=== PATIENT | female | born 1945 | race Caucasian/White ===

== ENCOUNTER 2019-09-07 16:24 | Inpatient (IN) | payer MEDICARE, OTHER ==
[2019-09-07 16:45] LABS: BASOPHILS 0.6 % (0-2); EOSINOPHILS 5.5 % (0-7); HEMATOCRIT 40.9 % (36.0-48.0); HEMOGLOBIN 13.5 g/dL (12-16); IMMATURE GRANULOCYTES 0.2 % (0-5); LYMPHOCYTES 23.6 % (15-50); MCH 30.5 pg (26.0-34.0); MCV 92.3 fL (80.0-100.0); MEAN PLATELET VOLUME 9.9 fL (7.4-10.4); MONOCYTES 8.8 % (2-11); NEUTROPHILS 61.3 % (40-80); PLATELET COUNT 207 10x3/uL (130-400); RBC 4.43 10x6/uL (4.00-5.40); WBC 5.1 10x3/uL (4.8-10.8)
[2019-09-07 16:56] LABS: ANION GAP 12.3 mmol/L (8-16); CALCIUM 8.8 mg/dL (8.5-10.1); CARBON DIOXIDE 25.8 mmol/L (21.0-32.0); CREATININE - SERUM 1.1 mg/dL (0.6-1.3); POTASSIUM - SERUM 4.1 mmol/L (3.5-5.1)
[2019-09-07 16:57] LABS: BILIRUBIN NEGATIVE (NEGATIVE); GLUCOSE NEGATIVE (NEGATIVE); KETONE NEGATIVE (NEGATIVE); NITRITE NEGATIVE (NEGATIVE); UROBILINOGEN NORMAL (NORMAL)
[2019-09-07 17:00] LABS: UDS - AMPHET NEGATIVE QUAL (NEGATIVE); UDS - BARB NEGATIVE QUAL (NEGATIVE); UDS - BENZO NEGATIVE QUAL (NEGATIVE); UDS - COCAINE NEGATIVE QUAL (NEGATIVE); UDS - OPIATE NEGATIVE QUAL (NEGATIVE); UDS - PCP NEGATIVE QUAL (NEGATIVE); UDS - THC NEGATIVE QUAL (NEGATIVE)
[2019-09-07 17:01] LABS: ALBUMIN 3.9 g/dL (3.4-5.0); BILIRUBIN - TOTAL 0.59 mg/dL (0.2-1.3); PROTEIN - SERUM 6.6 g/dL (6.4-8.2)
--- NOTE | 2019-09-07 17:22 | NUR ---
TALKED TO YOJANA IN [facility], STATES THE DAUGHTER HAD ALREADY CALLED ABOUT THE PT. DERRICK ROWLAND IN ROOM TALKING TO PTS AT THIS TIME.
--- NOTE | 2019-09-07 18:10 | NUR ---
PT EATING DINNER , AT BEDSIDE.
--- NOTE | 2019-09-07 19:32 | NUR ---
The patient is admitted from the emergency department. She does not want to be here and her stated "Well, this is not what I thought it was going to be." Explained to him that "If he would rather not admit her it is ok." He said ok, and she said ok. The patient told her spouse she wanted to leave. Escorted the spouse out and asked him "What his goals are and does he want to place her in an assisted living facility." He said "Well, I'd like to get a real psychiatrist Dr. Melgar to adjust her medications and have her come home by Monday or Monday. Explained to him that that is not realistic that typically we keep our patient's here seven to fourteen days, but that he will need to make decisions that are best for them. He is not pleased with the psychiatrist in [place] [facility] that she sees.
[2019-09-07 20:00] VITALS: BP 153/53
--- NOTE | 2019-09-07 23:33 | NUR ---
PT RESTLESS AND STATES "IM ANXIOUS" PROVIDE PRN ATIVAN 0.5 MG PO WILL CONTINUE TO MONITOR.
[2019-09-07 23:42] VITALS: BP 153/53; BMI 29.9
[2019-09-08 07:48] LABS: CHOL - HDL RATIO 3.2 ratio (2.3-4.1); LDL-HDL RATIO 2.1 ratio (1.5-3.5)
[2019-09-08 08:34] VITALS: BP 137/67
--- NOTE | 2019-09-08 12:43 | NUR ---
The patient is awake. She is calm and pleasant she has found a couple of lady friends here and she is socializing and interacting with staff and peers. She has not shown any aggression this am. She ambulates independently. She has poor insight into her situation. Her called and checked on her this am and he states he will bring clothes and her medication list this afternoon. He said "I can't see her until 3:30, is that right?" Explained to him that is correct. He is not happy about that, but he verbalized understanding. Provide prescribed meds. The patient has not had any meds this am as the spouse will bring the medication list when he comes in today. Continue POC.
[2019-09-08] MEDS ORDERED: DONEPEZIL HCL10 MG PO (16:18)
[2019-09-08] MEDS ORDERED: NAMENDA10 MG PO (16:18)
[2019-09-08] MEDS ORDERED: GLUCOPHAGE500 MG PO (16:19)
--- NOTE | 2019-09-08 16:24 | NUR ---
The patient's spouse is here and he did bring the patient's medication list. Made a copy and let him keep his original. He says he will call tomorrow around [address] Melgar has to say. Will pass this on to the next shift.
--- NOTE | 2019-09-08 20:01 | NUR ---
RECEIVED IN DAYROOM. SITTING IN A CHAIR WITH PEERS AT HER SIDE. CALM AND COOPERATIVE WITH CARE AND ASSESSMENT. NO SIGNS OF AGGRESSION. REDIRECT AND REORIENT NEEDED. CONTINUES TO SIT CALMLY IN DAYROOM. CONTINUE PLAN OF CARE.
[2019-09-08 20:04] VITALS: BP 142/47
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
[2019-09-09 07:40] VITALS: BP 119/62
[2019-09-09 10:37] VITALS: Wt 73.0 kg
--- NOTE | 2019-09-09 12:00 | NUR ---
RECEIVED IN HALLWAY OUTSIDE OF NURSES STATION. CALM AND COOPERATIVE WITH CARE AND ASSESSMENT. NO AGGRESSIVE BEHAVIORS. REDIRECT AND REORIENT NEEDED. EATING LUNCH AT THIS TIME. CONTINUE PLAN OF CARE.
[2019-09-09 21:00] VITALS: BP 115/93
--- NOTE | 2019-09-09 21:49 | NUR ---
RECEIVED IN HALLWAY OUTSIDE OF NURSES STATION. CALM AND COOPERATIVE WITH CARE AND ASSESSMENT. NO SIGNS OF AGGRESSION. REDIRECT AND REORIENT NEEDED. RESTING IN BED WITH EYES CLOSED AT THIS TIME. CONTINUE PLAN OF CARE.
[2019-09-10 08:04] VITALS: BP 152/63
--- NOTE | 2019-09-10 15:00 | PN ---
PATIENT:GABRIELLE SINGH MEDICAL RECORD: [id number] LOCATION:[facility] ADMISSION DATE: 09/07/19 PROGRESS NOTE DATE OF SERVICE: 09/09/2019 SUBJECTIVE: The patient's case was discussed with staff. She has no new complaint. OBJECTIVE: The patient is in good behavioral control with poor insight about her situation. She is eating and sleeping well. She denies that she would seek to harm herself or others. ASSESSMENT: Dementia. PLAN: Current medicines have been reviewed and will be maintained. Long-term prognosis is guarded. TRANSINT:[id number] Voice Confirmation ID: [id number] DOCUMENT ID: [id number] EVELYNE BRYSON MD at 1500 CC: [id number] DICTATION DATE: 09/09/19 1334 OFFICE ADMINISTRATION INSTRUCTOR: 09/09/19 1357 ADM IN [place] [id number] [place] [id number]
--- NOTE | 2019-09-10 17:00 | NUR ---
RECEIVED IN HALLWAY OUTSIDE OF NURSES STATION. CALM AND COOPERATIVE WITH CARE AND ASSESSMENT. NO AGGRESSION. REDIRECT AND REORIENT NEEDED. EATING AT THIS TIME. CONTINUE PLAN OF CARE.
[2019-09-10 20:09] VITALS: BP 152/66
--- NOTE | 2019-09-10 21:20 | NUR ---
RECEIVED IN DAYROOM. SITTING IN A CHAIR WITH PEERS AT HER SIDE. CALM AND COOPERATIVE WITH CARE AND ASSESSMENT. NO SIGNS OF AGGRESSION. REDIRECT AND REORIENT NEEDED. RESTING IN BED WITH EYES OPEN AT THIS TIME. CONTINUE PLAN OF CARE.
--- NOTE | 2019-09-11 08:47 | NUR ---
LATE NOTE 09/09 SW SPOKE WITH PT'S ABOUT DIFFERENT LEVELS OF CARE, SAFETY IN THE HOME ENVIRONMENT, AND THE BENEFITS OF KEEPING PT IN TREATMENT HERE ON SR CARE OPPOSED TO TAKING HER OUT. PT'S VERBALIZED UNDERSTANDING OF DISCUSSION.
[2019-09-11 10:28] VITALS: BP 128/61
--- NOTE | 2019-09-11 11:02 | NUR ---
The patient is awake and alert, she is pleasant and interacting with staff. She is calm, She sat and spoke with Isadora ALLISON and now she is interacting in a group with her peers and Isadora ALLISON. The patient ambulates independently. She has not shown any aggression today. Provide prescribed meds. The patient is comliant with meds. She remains confused with poor insight into her situation. Continue POC.
--- NOTE | 2019-09-11 14:51 | PN ---
PATIENT:GABRIELLE SINGH MEDICAL RECORD: [id number] LOCATION:[facility] ADMISSION DATE: 09/07/19 PROGRESS NOTE DATE OF SERVICE: 09/10/2019 SUBJECTIVE: The patient's case was discussed with staff. She has no new complaint. OBJECTIVE: The patient denies intent to harm herself or others. She is very impaired cognitively. ASSESSMENT: Dementia. PLAN: Current medicines have been reviewed and will be maintained. Long-term prognosis is guarded. TRANSINT:[id number] Voice Confirmation ID: [id number] DOCUMENT ID: [id number] EVELYNE BRYSON MD at 1451 CC: [id number] DICTATION DATE: 09/10/19 1533 PROGRAMMER ANALYST: 09/10/19 2257 ADM IN [place] [id number] [place] [address]
[2019-09-11 20:11] VITALS: BP 143/53
--- NOTE | 2019-09-11 22:23 | NUR ---
B.) PT IS ALERT AND ORIENTED TO SELF ONLY. SHE IS ABLE TO WALK WITHOUT ASSIST AND VOICE NEEDS AND CONCERNS. SHE IS RECEIVED IN THE DAYROOM SOCIALIZING WITH PEERS. SHE IS CALM AND COOPERATIVE WITH STAFF. I.) PROVIDED PM MEDICATIONS PRESCRIBED. REDIRECT OFTEN. R.) COMPLIANT WITH ALL MEDICATIONS. EASY TO REDIRECT. P.) WILL CONTINUE TO MONITOR.
[2019-09-12 08:33] VITALS: BP 122/55
--- NOTE | 2019-09-12 14:12 | NUR ---
Nutrition Follow-up: Overall good PO intake. Diet: Regular PO intake: 86% avg x 9 meals WT: 163# (09/08); 163.4# (09/06) No BMs recorded Labs noted: Glu 91 Meds noted: Glucophage -Encourage PO intake and honor food preferences. -Monitor wt. -RD following.
--- NOTE | 2019-09-12 14:39 | PN ---
PATIENT:GABRIELLE SINGH MEDICAL RECORD: [id number] LOCATION:[facility] ADMISSION DATE: 09/07/19 PROGRESS NOTE DATE OF SERVICE: 09/11/2019 SUBJECTIVE: The patient's case was discussed with staff. She has no new complaint. OBJECTIVE: The patient is in good behavioral control with poor insight about her condition. She tolerates her medicines well. She is impaired cognitively, but her behaviors are good. She is in need of 24-hour a day placement and her has decided to look for a [facility], and we will assist him in that task. ASSESSMENT: Dementia. PLAN: Current medicines have been reviewed. [facility] placement is being sought. TRANSINT:[id number] Voice Confirmation ID: [id number] DOCUMENT ID: [id number] EVELYNE BRYSON MD at 1439 CC: [id number] DICTATION DATE: 09/11/19 1700 DATABASES SOFTWARE CONSULTANT: 09/12/19 0219 ADM IN [facility] [address] [place] [address]
--- NOTE | 2019-09-12 17:28 | NUR ---
RECEIVED THIS AM SITTING IN CHAIR AT NURSES STATION.IS ORIENTED TO SELF.NO AGGRESSION OBSERVED BUT WAS ARGUMENTIVE ABOUT TAKING MEDS THIS AM.WILL CONTINUE WITH CURRENT PLAN OF CARE,MONITOR FOR CHANGES AND SAFETY.
[2019-09-12 20:38] VITALS: BP 122/48
--- NOTE | 2019-09-12 21:24 | NUR ---
RECEIVED PATIENT SITTING IN DAYROOM, SHE IS PLEASANT, SITTING AND TALKING WITH ANOTHER PATIENT, SHE IS CONFUSED, COMPLIANT WITH MEDS, ABLE TO MAKE ALL OF HER NEEDS KNOWN. WILL FOLLOW POC AND MONITOR
[2019-09-13 10:36] VITALS: BP 132/47
--- NOTE | 2019-09-13 11:58 | NUR ---
The patient is awake and alert she is pleasant and she has not shown any aggrtession with staff. She has poor insight into her situation. She does not know where she is located. She has poor short term memory. She is interacting well with staff and peers. Provide prescribed meds. The patient is compliant with meds. Continue POC.
[2019-09-13 20:18] VITALS: BP 131/48
--- NOTE | 2019-09-14 01:47 | NUR ---
PATIENT IS CONFUSED, PLEASANT, COMPLIANT WITH MEDS, CONVERSATING WITH ONE OTHER PATIENT QUITE WELL. SHE CAN MAKE HER NEEDS KNOWN. WILL FOLLOW POC
--- NOTE | 2019-09-14 08:02 | NUR ---
The patient is awake and alert, she is oriented to self. She is pleasant and cooperative. She has not shown any aggression today. She is interacting with other patients and enjoying her morning. Provide prescribed meds. The patient is compliant with meds. Continue POC.
[2019-09-14 09:13] VITALS: BP 130/55
[2019-09-14 20:00] VITALS: BP 111/90
--- NOTE | 2019-09-14 21:12 | NUR ---
RECEIVED PATIENT IN DINING AREA, INTERACTING WITH OTHER RESIDENTS, SHE IS CONFUSED, BUT NO BEHAVIORAL ISSUES, COMPLIANT WITH MEDS. WILL FOLLOW POC
[2019-09-15 10:35] VITALS: BP 100/42
--- NOTE | 2019-09-15 14:17 | NUR ---
PT IS AWAKE AND ALERT. PT IS ORIENTED TO SELF. PT BEHAVIOR IS PLEASANT AND COOPERATIVE. NO AGGRESSION NOTED AT THIS TIME. PT IS SOCIALIZING WITH PEERS AT DINING TABLE. PRESCRIBED MEDS PROVIDED ORERED. MED COMPLIANT. WILL CPOC.
[2019-09-15 20:00] VITALS: BP 131/62
--- NOTE | 2019-09-15 20:22 | NUR ---
RECEIVED IN DAYROOM. SITTING IN A CHAIR WITH PEERS AT HER SIDE. CALM AND COOPERATIVE WITH CARE AND ASSESSMENT. NO SIGNS OF AGGRESSION. REDIRECT AND REORIENT NEEDED. CONTINUES TO SIT CALMLY IN DAYROOM. CONITNUE PLAN OF CARE.
[2019-09-16 08:18] VITALS: BP 113/56
--- NOTE | 2019-09-16 15:05 | PN ---
PATIENT:GABRIELLE SINGH MEDICAL RECORD: [id number] LOCATION:[facility] ADMISSION DATE: 09/07/19 PROGRESS NOTE DATE OF SERVICE: 09/12/2019 SUBJECTIVE: The patient's case was discussed with staff. She has no new complaint. OBJECTIVE: The patient is in good behavioral control. She has poor insight about her situation. She has been very tearful today. She denies that she wants to hurt herself, but she does not do so in a very convincing manner. ASSESSMENT: Dementia. PLAN: I am going to start the patient on Celexa for its antidepressant effect. I will monitor her current condition. She is in need of placement. I am not sure what the has decided. I believe he is ambivalent, but is willing to accept jail placement since she has demonstrated that he cannot care for her. He also tells me he is afraid to leave her alone even momentarily because he is not sure what she will do. TRANSINT:[id number] Voice Confirmation ID: [id number] DOCUMENT ID: [id number] EVELYNE BRYSON MD at 1505 CC: [id number] DICTATION DATE: 09/12/19 1504 RETAIL ADVISOR: 09/12/19 4329 ADM IN [place] [id number] [place] [address]
[2019-09-16 20:50] VITALS: BP 141/60
[2019-09-17 08:58] VITALS: BP 106/50
--- NOTE | 2019-09-17 13:07 | PN ---
PATIENT:GABRIELLE SINGH MEDICAL RECORD: [id number] LOCATION:[facility] ADMISSION DATE: 09/07/19 PROGRESS NOTE DATE OF SERVICE: 09/16/2019 SUBJECTIVE: The patient's case was discussed with staff. She has no new complaint. OBJECTIVE: The patient is only partially oriented and has very limited insight about her situation. She is sleeping and eating reasonably well. ASSESSMENT: Dementia. PLAN: This patient is in need of 37-uclh-b-day supervision. Her is going to meet with the treatment team tomorrow to discuss his options. Understandably, this is a difficult and painful decision for him. If he chooses to take her home, I would be against my recommendation, but it certainly does not rise to the level of reporting to any sort of stayed authority. TRANSINT:[id number] Voice Confirmation ID: [id number] DOCUMENT ID: [id number] EVELYNE BRYSON MD at 1307 CC: [id number] DICTATION DATE: 09/16/19 1631 COPIER TECHNICIAN: 09/17/19 0208 ADM IN [facility] [address] [place] [address]
--- NOTE | 2019-09-17 13:30 | NUR ---
SW MET WITH PT'S , JAN, TO DISCUSS DISCHARGE PLANNING NEEDS AND SAFETY MEASURES. PT'S STATED AFTER THE CONVERSATION HE IS GOING TO PLACE PT IN CARE HOME. [facility] WILL DO A REFERRAL TO [facility] REQUESTED.
[2019-09-17 20:00] VITALS: BP 117/61
--- NOTE | 2019-09-17 20:34 | NUR ---
RECEIVED IN DAYROOM. SITTING CALMLY IN A CHAIR WITH PEERS AT HER SIDE. CALM AND COOPERATIVE WITH CARE AND ASSESSMENT. NO SIGNS OF AGGRESSION. REDIRECT AND REORIENT NEEDED. CONTINUES TO STI CALMLY IN DAYROOM. CONTINUE PLAN OF CARE.
[2019-09-18 08:00] VITALS: BP 115/42
--- NOTE | 2019-09-18 14:04 | PN ---
PATIENT:GABRIELLE SINGH MEDICAL RECORD: [id number] LOCATION:[facility] ADMISSION DATE: 09/07/19 PROGRESS NOTE DATE OF SERVICE: 09/17/2019 SUBJECTIVE: The patient's case was discussed with staff. She has no new complaint. OBJECTIVE: The patient denies intent to harm herself or others. She is eating and sleeping reasonably well. ASSESSMENT: Dementia. PLAN: I anticipate the patient can be transitioned back to [place] soon if this level of improvement continues. TRANSINT:[id number] Voice Confirmation ID: [id number] DOCUMENT ID: [id number] EVELYNE BRYSON MD at 1404 CC: [id number] DICTATION DATE: 09/17/19 1444 ASPHALT TAR AND GRAVEL ROOFER: 09/18/19 0118 ADM IN [facility] [address] [place] [address]
--- NOTE | 2019-09-18 16:09 | NUR ---
Nutrition Follow-up: Diet: Regular PO intake: ~58% average x last 9 meals (varies 0-100%) Last BM: 09/14/19. WT: 163# (09/15/19); Admit WT: 163.4# (09/07/19) Meds noted: lasix, metformin, SSI Labs noted: POC Glu 102 Recommend continue current diet for now, will watch blood glucose. May need glucerna oral nutrition supplement added if PO intake continues to trend <60%. RD following.
[2019-09-18 20:00] VITALS: BP 122/47
--- NOTE | 2019-09-19 00:40 | NUR ---
B.) PT IS ALERT AND ORIENTED TO SELF AND SITUATION. SHE IS CALM AND COOPERATIVE WITH STAFF AND IS RECEIVED SOCIALIZING IN THE DAYROOM WITH HER PEERS. SHE IS CALM AND COOPERATIVE. SHE IS PLEASANT WITH STAFF. I.) PROVIDED PM MEDICATIONS PRESCRIBED. REDIRECT NEEDED. R.) COMPLIANT WITH ALL MEDICATIONS. EASY TO REDIRECT. P.) WILL CONTINUE TO MONITOR.
--- NOTE | 2019-09-19 08:17 | NUR ---
PT IS ALERT AND ORIENTED TO SELF ONLY. SHE HAS POOR INSIGHT INTO HER SITUATION. SHE IS CALM AND COOPERATIVE WITH STAFF. SHE IS RECEIVED OUTSIDE THE NURSES STATION SOCIALIZING WITH PEERS. PREVIOUS SHIFT REPORTS MED COMPLIANCE. WILL CONTINUE TO MONITOR.
[2019-09-19 10:25] VITALS: BP 111/70
--- NOTE | 2019-09-19 12:57 | PN ---
PATIENT:GABRIELLE SINGH MEDICAL RECORD: [id number] LOCATION:[facility] ADMISSION DATE: 09/07/19 PROGRESS NOTE DATE OF SERVICE: 09/18/2019 SUBJECTIVE: The patient's case was discussed with staff. She has no new complaint. OBJECTIVE: The patient is in good behavioral control. She is sleeping and eating well. She is impaired cognitively, but not disruptive to any appreciable degree. ASSESSMENT: Dementia. PLAN: The patient's has decided to place her in a half-way. As soon as those arrangements can be made, I think she can be transitioned out of the hospital. TRANSINT:[id number] Voice Confirmation ID: [id number] DOCUMENT ID: [id number] EVELYNE BRYSON MD at 1257 CC: [id number] DICTATION DATE: 09/18/19 1447 MILD DISABILITIES TEACHER: 09/18/19 1523 ADM IN [facility] [address] [place] [address]
--- NOTE | 2019-09-19 17:11 | NUR ---
SW MET WITH PT'S DTR TO DISCUSS DISCHARGE PLANS AND REFERRAL TO [place]. PT'S CONDITION WAS ALSO DISCUSSED. PT'S DTR VOICED UNDERSTANDING.
[2019-09-19 20:00] VITALS: BP 140/61
--- NOTE | 2019-09-19 23:43 | NUR ---
B) Patient is alert and oriented to person and place, calm and cooperative, I) Administered scheduled medications as ordered, monitored for safety R) medication compliant, pleasnat ad friendly P) Continue plan of care.
--- NOTE | 2019-09-20 09:43 | NUR ---
The patient is awake and alert, she was tearful early this am. She is calm, she just wants to go home. She has shown no aggression today. She has poor insight into her situation. She has poor short term memory recall. Provide prescribed meds. Continue POC.
[2019-09-20 10:22] VITALS: BP 131/48
--- NOTE | 2019-09-20 14:45 | PN ---
PATIENT:GABRIELLE SINGH MEDICAL RECORD: [id number] LOCATION:[facility] ADMISSION DATE: 09/07/19 PROGRESS NOTE DATE OF SERVICE: 09/19/2019 SUBJECTIVE: The patient's case was discussed with staff. She has no new complaint. OBJECTIVE: The patient is quite confused and cognitively impaired, but she has stabilized well in this environment with the schedule that she is kept on and being redirected and supervised. ASSESSMENT: Dementia. PLAN: I anticipate the patient can be transitioned to the [facility] soon. We are waiting on adult protective services to give us permission. She will likely settle in nicely to a [facility] routine. I am prepared to discharge her as soon as approval is received. TRANSINT:[id number] Voice Confirmation ID: [id number] DOCUMENT ID: [id number] EVELYNE BRYSON MD at 1445 CC: [id number] DICTATION DATE: 09/19/19 1523 FUEL MANAGEMENT HANDLER: 09/19/19 2318 ADM IN [facility] [address] [place] [address]
[2019-09-20 20:10] VITALS: BP 114/27
--- NOTE | 2019-09-20 23:42 | NUR ---
B.) PT IS ALERT AND ORIENTED TO SELF ONLY. SHE HAS POOR INSIGHT INTO HER SITUATION. SHE IS RECEIVED IN THE DAYROOM SOCIALIZING WITH HER PEERS. SHE IS CALM AND COOPERATIVE WITH STAFF. I.) PROVIDED PM MEDICATIONS PRESCRIBED. REDIRECT OFTEN. R.) COMPLIANT WITH ALL MEDICATIONS. EASY TO REDIRECT. P.) WILL CONTINUE TO MONITOR.
--- NOTE | 2019-09-21 07:58 | NUR ---
The patient is awake and alert and she is pleasant and calm this am. She ambulates independently. She is conversing with staff and her peers. She has not shown any aggression today. Provide prescribed meds. The patient is compliant with meds. Continue POC.
[2019-09-21 11:35] VITALS: BP 128/39
--- NOTE | 2019-09-21 12:46 | PN ---
PATIENT:GABRIELLE SINGH MEDICAL RECORD: [id number] LOCATION:[facility] ADMISSION DATE: 09/07/19 PROGRESS NOTE DATE OF SERVICE: 09/20/2019 SUBJECTIVE: The patient's case was discussed with staff. She has no new complaint. OBJECTIVE: The patient is confused, but eating and sleeping reasonably well. She has limited insight about her situation. [facility] has declined her for reasons that are unclear. Alternate placement will be sought. ASSESSMENT: Dementia. PLAN: Current medicines have been reviewed and alternate group home placement will be sought, but I suspect it will be early next week before that can be arranged. TRANSINT:[id number] Voice Confirmation ID: [id number] DOCUMENT ID: [id number] EVELYNE BRYSON MD at 1246 CC: [id number] DICTATION DATE: 09/20/19 1525 SURVEYING TEACHER: 09/21/19 0038 ADM IN [facility] [address] [place] [address]
[2019-09-21 20:21] VITALS: BP 130/86
--- NOTE | 2019-09-21 23:27 | NUR ---
B.) PT IS ALERT AND ORIENTED TO SELF ONLY. SHE IS RECEIVED IN THE DAYROOM SOCIALIZING WITH PEERS. SHE IS CALM, COOPERATIVE, PLEASANT WITH STAFF. SHE IS ABLE TO AMBULATE WITHOUT ASSIST AND IS VERY HELPFUL WITH HER PEERS. I.) PROVIDED PM MEDICATIONS PRESCRIBED. REDIRECT NEEDED. R.) COMPLIANT WITH ALL MEDICATIONS. EASY TO REDIRECT. P.) WILL CONTINUE TO MONITOR.
[2019-09-22 08:25] VITALS: BP 120/51
--- NOTE | 2019-09-22 11:02 | NUR ---
The patient is awake and alert, she is pleasant and calm, she is joyful and she tries to be positive even though she wants to be with her at home. The patient has not shown any aggression. She ambulates, feeds, and toilets independently. Provide prescribed meds. The patient is compliant with meds. Continue POC.
--- NOTE | 2019-09-22 13:04 | PN ---
PATIENT:GABRIELLE SINGH MEDICAL RECORD: [id number] LOCATION:[facility] ADMISSION DATE: 09/07/19 PROGRESS NOTE DATE OF SERVICE: 09/21/2019 SUBJECTIVE: The patient's case was discussed with staff. She has no new complaint. OBJECTIVE: The patient is in good behavioral control. She has no thoughts of harming herself or others. She is impaired cognitively. ASSESSMENT: Dementia. PLAN: Brief supportive and educational interventions were made. Long-term prognosis is guarded. TRANSINT:[id number] Voice Confirmation ID: [id number] DOCUMENT ID: [id number] EVELYNE BRYSON MD at 1304 CC: [id number] DICTATION DATE: 09/21/19 1323 BI REPORT DEVELOPER: 09/21/19 1737 ADM IN [place] [id number] [place] [address]
--- NOTE | 2019-09-22 14:52 | PN ---
PATIENT:GABRIELLE SINGH MEDICAL RECORD: [id number] LOCATION:[facility] ADMISSION DATE: 09/07/19 PROGRESS NOTE DATE OF SERVICE: 09/22/2019 SUBJECTIVE: The patient's case was discussed with staff. She has no new complaint. OBJECTIVE: The patient is in good behavioral control. She has limited insight about her situation. ASSESSMENT: Dementia. PLAN: The patient will be transitioned out of the hospital soon. Her behaviors have improved and she is in need of custodial placement. TRANSINT:[id number] Voice Confirmation ID: [id number] DOCUMENT ID: [id number] EVELYNE BRYSON MD at 1452 CC: [id number] DICTATION DATE: 09/22/19 1349 FIELD WORKER: 09/22/19 1406 ADM IN [place] [id number] [place] [address]
--- NOTE | 2019-09-22 19:50 | NUR ---
RECEIVED IN DAYROOM. SITTING IN A CHAIR SOCIALIZING WITH PEERS. CALM AND COOPERATIVE WITH CARE AND ASSESSMENT. NO SIGNS OF AGGRESSION. REDIRECT AND REORIENT NEEDED. CONTINUES TO BE SOCIAL WITH PEERS. CONTINUE PLAN OF CARE.
[2019-09-22 20:24] VITALS: BP 119/51
[2019-09-23 09:07] VITALS: BP 123/46
--- NOTE | 2019-09-23 12:00 | NUR ---
RECEIVED IN HALLWAY OUTSIDE OF NURSES STATION. CALM AND COOPERATIVE WITH CARE AND ASSESSMENT. NO BEHAVIORS. REDIRECT AND REORIENT NEEDED. EATING LUNCH AT THIS TIME. CONTINUE PLAN OF CARE.
--- NOTE | 2019-09-23 14:00 | NUR ---
COVID 19 TEST COLLECTED PER ORDER. AWAITING ON RESULTS AT THIS TIME.
[2019-09-23 19:45] VITALS: BP 118/55
[2019-09-24 09:53] VITALS: BP 139/42
--- NOTE | 2019-09-24 13:53 | PN ---
PATIENT:GABRIELLE SINGH MEDICAL RECORD: [id number] LOCATION:[facility] ADMISSION DATE: 09/07/19 PROGRESS NOTE DATE OF SERVICE: 09/23/2019 SUBJECTIVE: The patient's case was discussed with staff. She has no new complaint. OBJECTIVE: The patient is in good behavioral control with poor insight about her situation. She has not been aggressive. ASSESSMENT: Dementia. PLAN: Brief supportive and educational interventions were made. I have reviewed current medicines and anticipate that she can be transitioned out of the hospital soon. NTS:[id number] Voice Confirmation ID: [id number] DOCUMENT ID: [id number] EVELYNE BRYSON MD at 1353 CC: [id number] DICTATION DATE: 09/23/19 1532 DIRECTOR OF CORPORATE RESPONSIBILITY: 09/24/19 0205 ADM IN [facility] [address] [place] [address]
[2019-09-24] MEDS ORDERED: DESERYL PO (16:05)
[2019-09-24] MEDS ORDERED: CELEXA20 MG PO (16:05)
[2019-09-24] MEDS ORDERED: LIPITOR10 MG PO (16:05)
[2019-09-24] MEDS ORDERED: LISINOPRIL10 MG PO (16:05)
[2019-09-24] MEDS ORDERED: FUROSEMIDE20 MG PO (16:05)
[2019-09-24] MEDS ORDERED: K-TAB10 MEQ PO (16:05)
[2019-09-24 19:49] VITALS: BP 90/33
--- NOTE | 2019-09-25 01:13 | NUR ---
B) Patient is alert and oriented to person, place and time, calm and cooperative I) Administered scheduled medications as ordered, monitored for safety R) Medication compliant, no behaviors noted, P) Continue plan of care.
[2019-09-25 10:25] VITALS: BP 101/44
--- NOTE | 2019-09-25 11:22 | NUR ---
Nutrition Follow-up: Diet: Regular PO intake: ~69% average x last 9 meals Last BM: 09/19/19 (x 6 days now). WT: 160# (09/22/19); Admit WT: 163.4# (09/07/19) Meds noted: lasix, metformin. Labs reviewed. Weight difference noted, PO intake adequate at this time. Will continue to monitor. Recommend continue current diet. Encourage PO intake. RD following.
--- NOTE | 2019-09-25 14:59 | NUR ---
RECEIVED IN HALLWAY OUTSIDE OF NURSES STATION. CALM AND COOPERATIVE WITH CARE AND ASSESSMENT. NO AGGRESSION. REDIRECT AND REORIENT NEEDED. SITTING IN GROUP AT THIS TIME. CONTINUE PLAN OF CARE.
--- NOTE | 2019-09-25 16:00 | NUR ---
PT DISCHARGED TO [facility] PER NM MAIKEL. ALL DISCHARGE PAPERWORK FAXED AND COPY SENT WITH PT. NO S/SX OF DISTRESS NOTED.
--- NOTE | 2019-09-25 16:00 | NUR ---
DISCHARGED VIA WHEELCHAIR TO [facility]. CALM AND COOPERATIVE AT THIS TIME. BELONGINGS COLLECTED AND GIVEN TO MERGERS AND ACQUISITIONS ATTORNEY.
--- NOTE | 2019-09-26 15:30 | PN ---
PATIENT:GABRIELLE SINGH MEDICAL RECORD: [id number] LOCATION:[facility] ADMISSION DATE: 09/07/19 PROGRESS NOTE DATE OF SERVICE: 09/24/2019 SUBJECTIVE: The patient's case was discussed with staff. She has no new complaint. OBJECTIVE: The patient is in good behavioral control. She has poor insight about her situation. She is tolerating her medicines well. ASSESSMENT: Dementia. PLAN: The patient will be transitioned out of the hospital tomorrow. She is going to go to a local long term and followup will be with her primary care physician. TRANSINT:[id number] Voice Confirmation ID: [id number] DOCUMENT ID: [id number] EVELYNE BRYSON MD at 1530 CC: [id number] DICTATION DATE: 09/24/19 1602 WOOL WASHING MACHINE OPERATOR: 09/25/19 0159 DIS IN 09/25/19 [facility] [address] [place] [address]
--- NOTE | 2019-09-26 15:30 | PN ---
PATIENT:GABRIELLE SINGH MEDICAL RECORD: [id number] LOCATION:[facility] ADMISSION DATE: 09/07/19 PROGRESS NOTE DATE OF SERVICE: 09/25/2019 SUBJECTIVE: The patient's case was discussed with staff. She has no new complaint. OBJECTIVE: The patient is in good behavioral control, impaired cognitively, but not aggressive. ASSESSMENT: Dementia. PLAN: She will be transitioned out of the hospital soon. Her long-term prognosis is guarded. TRANSINT:[id number] Voice Confirmation ID: [id number] DOCUMENT ID: [id number] EVELYNE BRYSON MD at 1530 CC: [id number] DICTATION DATE: 09/25/19 1645 LEAN MANAGER: 09/26/19 0014 DIS IN 09/25/19 [facility] [address] [place] [address]
== END 2019-09-25 14:00 | DRG 57 ==
LOC: D.ER 16:24 → D.PSYCH 17:56
PROVIDERS: Family Medicine; ADMIT Psychiatry & Neurology Psychiatry; ATTEND Psychiatry & Neurology Psychiatry
DX: G30.1 Alzheimer's disease with late onset (principal); F02.81 Dementia in other diseases classified elsewhere, unspecified severity, with behavioral disturbance; E11.9 Type 2 diabetes mellitus without complications; F41.8 Other specified anxiety disorders; E78.5 Hyperlipidemia, unspecified; I10 Essential (primary) hypertension; E78.00 Pure hypercholesterolemia, unspecified

== ENCOUNTER 2019-10-18 13:25 | Emergency (ER) | payer MEDICARE ==
[~2019-10-18] VITALS: Ht 160 cm; Wt 70.0 kg
[~2019-10-18 13:25] MED LIST: CELEXA20 MG PO; DESERYL PO; DONEPEZIL HCL10 MG PO; FUROSEMIDE20 MG PO; GLUCOPHAGE500 MG PO; K-TAB10 MEQ PO; LIPITOR10 MG PO; LISINOPRIL10 MG PO; NAMENDA10 MG PO
[2019-10-18 13:30] VITALS: Ht 160 cm; Wt 70.0 kg
[2019-10-18 14:24] LABS: BASOPHILS 0.2 % (0-2); EOSINOPHILS 0.3 % (0-7); HEMOGLOBIN 15.9 g/dL (12-16); IMMATURE GRANULOCYTES 0.7 % (0-5); LYMPHOCYTES 13.8 % (15-50); MCH 29.6 pg (26.0-34.0); MCHC 31.8 g/dL (31.0-37.0); MCV 92.9 fL (80.0-100.0); MEAN PLATELET VOLUME 10.6 fL (7.4-10.4); PLATELET COUNT 170 10x3/uL (130-400); RBC 5.38 10x6/uL (4.00-5.40); RDW 12.9 % (11.5-14.5); WBC 9.1 10x3/uL (4.8-10.8)
[2019-10-18 14:34] LABS: CALC OSMOLALITY 306 mosm/kg (275-300); CALCIUM 9.9 mg/dL (8.5-10.1); CARBON DIOXIDE 26.3 mmol/L (21.0-32.0); CHLORIDE - SERUM 105 mmol/L (98-107); CREATININE - SERUM 2.1 mg/dL (0.6-1.3); GLUCOSE 106 mg/dL (74-106); POTASSIUM - SERUM 5.2 mmol/L (3.5-5.1); SODIUM 142 mmol/L (136-145); UREA NITROGEN 80 mg/dL (7-18); eGFR NON AFRICAN AMERICAN 24 mL/min (90-120)
[2019-10-18 14:43] LABS: APTT 25.4 SECONDS (22.8-39.4); INR 0.98 (0.85-1.17); PROTIME 12.9 SECONDS (11.6-15.0)
[2019-10-18 14:50] LABS: ALBUMIN 4.3 g/dL (3.4-5.0); ALKALINE PHOSPHATASE 78 U/L (30-120); ALT (SGPT) 15 U/L (10-68); BILIRUBIN - TOTAL 0.74 mg/dL (0.2-1.3); CKMB 1.1 U/L (0.0-3.6); CREATINE KINASE 48 UL (21-215); PRO BNP 317 pg/mL (0-125); PROTEIN - SERUM 7.4 g/dL (6.4-8.2); TROPONIN-I < 0.017 ng/mL (0.000-0.060)
[2019-10-18 17:37] VITALS: BP 129/55
== END 2019-10-18 18:07 ==
LOC: D.ER 13:25
PROVIDERS: Family Medicine
DX: N28.9 Disorder of kidney and ureter, unspecified (principal); E86.0 Dehydration; E87.5 Hyperkalemia; F03.90 Unspecified dementia, unspecified severity, without behavioral disturbance, psychotic disturbance, mood disturbance, and anxiety; E11.9 Type 2 diabetes mellitus without complications; Z79.84 Long term (current) use of oral hypoglycemic drugs

== ENCOUNTER 2019-10-29 15:50 | Inpatient (IN) | payer MEDICARE, OTHER ==
[~2019-10-29] VITALS: Ht 160 cm; Wt 68.0 kg
[2019-10-29 17:49] LABS: HEMATOCRIT 56.4 % (36.0-48.0); HEMOGLOBIN 17.9 g/dL (12-16); MCH 29.1 pg (26.0-34.0); MCHC 31.7 g/dL (31.0-37.0); MCV 91.6 fL (80.0-100.0); MEAN PLATELET VOLUME 11.8 fL (7.4-10.4); NEUTROPHILS 70.8 % (40-80); PLATELET COUNT 204 10x3/uL (130-400); RBC 6.16 10x6/uL (4.00-5.40); RDW 13.1 % (11.5-14.5); WBC 10.7 10x3/uL (4.8-10.8)
[2019-10-29 17:53] LABS: APTT 27.1 SECONDS (22.8-39.4); INR 1.05 (0.85-1.17); PROTIME 13.7 SECONDS (11.6-15.0)
[2019-10-29 17:54] LABS: BILIRUBIN NEGATIVE (NEGATIVE); GLUCOSE NEGATIVE (NEGATIVE); KETONE NEGATIVE (NEGATIVE); NITRITE NEGATIVE (NEGATIVE); SPECIFIC GRAVITY 1.025 (1.005-1.020); UROBILINOGEN NORMAL (NORMAL)
[2019-10-29 18:00] LABS: UDS - AMPHET NEGATIVE QUAL (NEGATIVE); UDS - BARB NEGATIVE QUAL (NEGATIVE); UDS - BENZO NEGATIVE QUAL (NEGATIVE); UDS - COCAINE NEGATIVE QUAL (NEGATIVE); UDS - OPIATE NEGATIVE QUAL (NEGATIVE); UDS - PCP NEGATIVE QUAL (NEGATIVE); UDS - THC NEGATIVE QUAL (NEGATIVE)
[2019-10-29 18:07] LABS: ALBUMIN 4.5 g/dL (3.4-5.0); ALKALINE PHOSPHATASE 82 U/L (30-120); ALT (SGPT) 67 U/L (10-68); BILIRUBIN - TOTAL 0.98 mg/dL (0.2-1.3); CALCIUM 9.9 mg/dL (8.5-10.1); CARBON DIOXIDE 25.1 mmol/L (21.0-32.0); CKMB 4.6 U/L (0.0-3.6); CREATINE KINASE 65 UL (21-215); CREATININE - SERUM 3.3 mg/dL (0.6-1.3); GLUCOSE 104 mg/dL (74-106); MAGNESIUM - SERUM 3.3 mg/dL (1.8-2.4); POTASSIUM - SERUM 5.2 mmol/L (3.5-5.1); PROTEIN - SERUM 7.6 g/dL (6.4-8.2); SODIUM 158 mmol/L (136-145); THYROID STIMULATING HORMONE 0.87 uIU/mL (0.36-3.74); eGFR NON AFRICAN AMERICAN 14 mL/min (90-120)
[2019-10-29 18:08] LABS: CALC OSMOLALITY 348 mosm/kg (275-300)
[2019-10-29 18:11] LABS: CHLORIDE - SERUM 119 mmol/L (98-107); UREA NITROGEN 112 mg/dL (7-18)
[2019-10-29 19:04] VITALS: BP 117/81
[2019-10-29 20:00] VITALS: BP 125/81
[2019-10-29 22:03] VITALS: BP 138/74
--- NOTE | 2019-10-29 22:44 | NUR ---
COVID SCREEN SENT TO LAB
[2019-10-29 22:47] LABS: ANION GAP 14.9 mmol/L (8-16); CALCIUM 8.6 mg/dL (8.5-10.1); CARBON DIOXIDE 25.6 mmol/L (21.0-32.0); CREATININE - SERUM 3.1 mg/dL (0.6-1.3); POTASSIUM - SERUM 4.5 mmol/L (3.5-5.1)
[2019-10-29] MEDS ORDERED: VITAMIN D1000 UNIT PO (23:13)
[2019-10-29] MEDS ORDERED: SENNA LAXATIVE8.6 MG PO (23:14)
[2019-10-29] MEDS ORDERED: ZOFRAN4 MG PO (23:15)
[2019-10-30 00:33] VITALS: BMI 26.6
--- NOTE | 2019-10-30 02:20 | NUR ---
MANE MANNING APN FOR CLARIFICATION ON IV FLUIDS THAT ARE ORDERED.
--- NOTE | 2019-10-30 02:26 | NUR ---
PER TAM MANNING PAGING RENALS FOR CLARIFICATION.
--- NOTE | 2019-10-30 02:34 | NUR ---
CARMEN, JUVENILE COURT LIAISON ORDERED TO KEEP NS @ 125 STARTING NOW, OBTAIN NEW BMP IN 4 HOURS AFTER INITIATING NS IV FLUIDS. WILL DO A BLADDER SCAN NOW AND ORDERED PRE CARMEN, JUVENILE [address] LIAISON WILL INSERT MARIE IF BLADDER RETENTION IS >150 ML.
--- NOTE | 2019-10-30 03:30 | NUR ---
16 GREEN[place] MARIE INSERTED, STAT LOCK IN PLACE. 200 ML OUT AT THIS TIME. URINE IS CONCENTRATED AND CLOUDY. CL IN REACH, BED IN LOWEST POSITION.
--- NOTE | 2019-10-30 06:10 | NUR ---
THIS NURSE FOUND PT WALKING ACROSS ROOM WITH MARIE LINE STRECTCHED DUE TO IT STILL BEING CONNECTED TO SIDE OF BED. PT HAD BLOOD OVER BOTH LEGS AND RIGHT ARM, PT HAD TORE OUT HER PIV TO THE RIGHT AC. PT TELE MONITOR WAS IN FLOOR, PT REFUSING TO ALLOW THIS NURSE TO PLACE TELE MONITOR BACK ON. THIS NURSE DID A FULL BED CHANGE AND BED BATH. PT STATED WHEN SETTELED BACK INTO BED, "THIS FEELS NICE" THIS NURSE MADE SURE THAT BEDALARM IS ON AND IN WORKING ORDER. CL IN REACH, BED IN LOWEST POSITION. SIDE RAILS X2.
--- NOTE | 2019-10-30 07:00 | NUR ---
PT RECEIVED ASLEEP IN BED. REPORT STATES SHE PULLED OUT BOTH IVS AND REMOVED GOWN AND TELEMETRY. WILL ASSESS FOR COOPERATION AND RESITE IV IF ABLE.
[2019-10-30 08:30] LABS: ALBUMIN 3.9 g/dL (3.4-5.0); BILIRUBIN - TOTAL 0.92 mg/dL (0.2-1.3); CALCIUM 8.8 mg/dL (8.5-10.1); CARBON DIOXIDE 21.8 mmol/L (21.0-32.0); CREATININE - SERUM 2.7 mg/dL (0.6-1.3); MAGNESIUM - SERUM 2.9 mg/dL (1.8-2.4); POTASSIUM - SERUM 4.8 mmol/L (3.5-5.1); PROTEIN - SERUM 6.2 g/dL (6.4-8.2)
[2019-10-30 08:42] LABS: HEMATOCRIT 50.6 % (36.0-48.0); HEMOGLOBIN 16.2 g/dL (12-16); LYMPHOCYTES 15.4 % (15-50); MCH 29.6 pg (26.0-34.0); MCV 92.3 fL (80.0-100.0); MEAN PLATELET VOLUME 11.8 fL (7.4-10.4); NEUTROPHILS 74.3 % (40-80); PLATELET COUNT 168 10x3/uL (130-400); RBC 5.48 10x6/uL (4.00-5.40); WBC 9.3 10x3/uL (4.8-10.8)
[2019-10-30 09:47] VITALS: BP 66/28
--- NOTE | 2019-10-30 10:22 | NUR ---
PT AWAKE BUT CONFUSED. GOWN PLACED BACK ON. ATTEMPTED X2 FOR IV START BUT NOT ABLE. TRIED TO GET HER TO EAT OR DRINK BUT ONLY BIT DOWN ON STRAW. MARIE NOTED WITH ABOUT 100-150 ML URINE IN BAG. WHEN TOUCHED TO DO VITALS OR ANYTHING SHE STATES IT HURTS AND TRIED TO PULL AWAY. DR WATKINS ON ROUNDS STATES HE IS GOING TO TRY AND CALL REGARDING CARE AND NEEDS. CAMERA MONITOR PLACED IN ROOM FOR VISUALIZATION [facility].
--- NOTE | 2019-10-30 16:05 | NUR ---
PT GETTING UP OUT OF BED. ALARM IN PLACE, PT IN COVID ROOM. HAS PULLED OUT ANOTHER IV AND STATLOCK OFF OF MARIE. REPLACED STATLOCK. GOT PT TO BED. ALARM IN USE.
--- NOTE | 2019-10-30 19:30 | NUR ---
PT HAS NO IV ACCESS AT THIS TIME. PT KEEPS PULLING IV'S OUT, X 8. PT RESP EVEN AND UNLABORED. NO DISTRESS NOTED, CL IN REACH, SR UP X 2.
[2019-10-30 21:36] VITALS: BP 110/67
[2019-10-31] VITALS: BP 96/53
[2019-10-31 04:00] VITALS: BP 121/31
--- NOTE | 2019-10-31 06:00 | NUR ---
22 GAUGE STARTED TO RIGHT AC, PT PULLED OUT SOON THIS NURSE TURNED AROUND TO SHOWER ROOM ATTENDANT NORMAL SALINE.
--- NOTE | 2019-10-31 07:27 | NUR ---
NIGHT NURSE REPORTS THAT PATIENT HAS PULLED OUT 7TH I/V.
[2019-10-31 09:36] VITALS: BP 131/67
[2019-10-31 12:47] VITALS: BP 118/54
--- NOTE | 2019-10-31 13:10 | NUR ---
I have reviewed this patient and I concur with the Shift Assessment completed by the Licensed Practical Nurse today this shift.
--- NOTE | 2019-10-31 19:00 | NUR ---
PT IN BED, EYES CLOSED, RESP EVEN AND UNLABORED. NO DISTRESS NOTED, PT AROUSES TO VERBAL STIMULI, CL IN REACH, SR UP X 2.
[2019-10-31 20:00] VITALS: BP 116/62
--- NOTE | 2019-11-01 03:11 | NUR ---
I have reviewed this patient and I concur with the Shift Assessment completed by the Licensed Practical Nurse today this shift.
[2019-11-01 04:00] VITALS: BP 118/66
[2019-11-01 08:40] VITALS: BP 130/77
--- NOTE | 2019-11-01 09:13 | NUR ---
PT AWAKE AND CONFUSED, LYIGN IN BED ON SIDE. REFUSED TO EAT ANY OF THE OFFERED BREAKFAST. STARTED DRY HEAIVING FOR ABOUT 2 MINUTES. THEN WENT BACK TO SLEEP. PT DOES NOT ANSWER QESTIONS. UNABLE TO ADMINISTER MEDS D/T PT NOT EATING AND NONCOMPLIENCE. CL INR EACH,S RX2. BED ALARM ON AND ACTIVE WNL. BABY MONITOR WORKING WNL, SET UP FORVIEWING.
--- NOTE | 2019-11-01 12:33 | NUR ---
PT AWAKE AND CONFUSED, WOKE TO MODERATE STIMULI. ATTEMPTED TO GET PT TO EAT, SAT HER ALL THE WAY UP. SHE TOOK ONE SMALL BITE OF PUDDING BEFORE DECIDING SHE DID NOT LIKE IT AND WOULD NOT TAKE ANOTHER BITE OF DRINK OF FOOD/WATER. BACK SLEEPING. CL WAS UNPLUGGED BY MANAGMENT D/T NOT WORKING. PT IS MONITORED CLOSELY WITH BABY MONITOR AND HAS BED ALARM ON AND ACTIVE WNL. BED RAILS X3. CLEAN AND DRY.
--- NOTE | 2019-11-01 14:26 | NUR ---
PT PULLED MARIE OVER HLAFWAY OUT, BULB INTACT. D/C'D MARIE D/T PT SCREAMING ABOUT IT BEING PAINFUL. WILL INFROM [employer] ARCHITECT. CL IN REACH, SRX2. PT REDRESSED. BED ALARM ON. CAMERA WORKING WNL .
[2019-11-01 14:54] VITALS: Ht 160 cm; Wt 68.0 kg
[2019-11-01 17:02] VITALS: BP 127/73
--- NOTE | 2019-11-01 17:41 | NUR ---
I have reviewed this patient and I concur with the Shift Assessment completed by the Licensed Practical Nurse today this shift.
--- NOTE | 2019-11-01 19:30 | NUR ---
PT IN BED, EYES CLOSED, RESP EVEN AND UNLABORED. NO DISTRESS NOTED, PT WITHDRAWN, WILL FOLLOW COMMANDS AT TIMES, PT INCONTINENT AT TIMES. CL IN REACH, SR UP X 2.
[2019-11-01 20:00] VITALS: BP 143/53
--- NOTE | 2019-11-02 03:57 | NUR ---
I have reviewed this patient and I concur with the Shift Assessment completed by the Licensed Practical Nurse today this shift.
[2019-11-02 04:12] VITALS: BP 146/59
--- NOTE | 2019-11-02 09:38 | NUR ---
PT AWAKE AND CONFUSED. FALLS BACK TO SLEEP EASILY. TRIED MULTIPLE WAYS TO GET HER TO EAT OR DRINK, PT WOULD NOT COMPLY. WILL CNT. TO ATTEMPT BUT UNABLE TO GIVE MEDS. CL IN REACH, SRX2.
--- NOTE | 2019-11-02 11:07 | NUR ---
SPOKE WITH PTS , RONALDO. HE STATED PT IS TO BE A DNR, CONFIRMED WITH RN DIANE, INFORMED Jennifer CASTANO, WILL HAVE DR. PEPPER SIGNS WHEN HE ROUNDS. SPOUSE REQUESTED [facility].
--- NOTE | 2019-11-02 15:41 | NUR ---
I have reviewed this patient and I concur with the Shift Assessment completed by the Licensed Practical Nurse today this shift.
--- NOTE | 2019-11-02 17:46 | NUR ---
PT RESTING COMFORTABLY WHEN I ENTERED, WOKE WHEN I SHOOK HER SHOULDER. INFOMRED HER I WOULD NEED TO CHAGNE HER. PT PARTIALLY COOPERATED BUT WAS UNHAPPY TO BE MOVED. PT WAS WET, CLEAN AND DRY AT THE [facility] STIME. BED ALARM AND ACTIVE, BABY MONITOR FUNCTIONING WNL.
--- NOTE | 2019-11-02 19:30 | NUR ---
PT IN BED, EYES CLOSED, RESP EVEN AND UNLABORED. NO DISTRESS NOTED, PT WITHDRAWN AND LETHARGIC, CL IN REACH, SR UP X 2.
[2019-11-02 19:37] VITALS: BP 153/87
--- NOTE | 2019-11-03 04:05 | NUR ---
I have reviewed this patient and I concur with the Shift Assessment completed by the Licensed Practical Nurse today this shift.
[2019-11-03 04:15] VITALS: BP 139/115
[2019-11-03 08:04] VITALS: BP 136/79
--- NOTE | 2019-11-03 16:12 | NUR ---
PT ESCORTED OUT VIA AMBULANCE STRETCHER, ON WAY TO SNF
== END 2019-11-03 16:13 | disposition home or self-care (01) | DRG 177 ==
LOC: D.ER 15:50 → D.M2 18:33
PROVIDERS: Family Medicine; ADMIT Family Medicine; ATTEND Family Medicine
DX: U07.1 COVID-19 (principal); G93.41 Metabolic encephalopathy; N17.9 Acute kidney failure, unspecified; E87.0 Hyperosmolality and hypernatremia; F03.91 Unspecified dementia, unspecified severity, with behavioral disturbance; E86.0 Dehydration; E11.65 Type 2 diabetes mellitus with hyperglycemia; F41.9 Anxiety disorder, unspecified